=== PATIENT | female | born 1980 | race African-American/Black ===

== ENCOUNTER 2017-08-31 06:16 | Emergency (ER) | payer OTHER ==
[~2017-08-31] VITALS: Ht 167.6 cm; Wt 81.6 kg
--- NOTE | 2017-08-31 06:38 | PHYS DOC ---
Past History Past Medical History: Hypertension Smoking: Cigarettes Adult General Chief Complaint Chief Complaint: MECHANICAL FALL HPI HPI 37-year-old female patient states she slipped on ice at 3:30 AM while she was at work and twisted her right ankle for prevention of fall patient denies head injury or other injuries. Patient complaining of pain in lateral side of right ankle as a constant pain that getting force with walking. Patient rated her pain 9/10 and states she took 2 Excedrin Tylenol and doesn't want to have any more pain medication in ER. Review of Systems Review of Systems Constitutional: Denies fever or chills [] Eyes: Denies change in visual acuity, redness, or eye pain [] HENT: Denies nasal congestion or sore throat [] Respiratory: Denies cough or shortness of breath [] Cardiovascular: No additional information not addressed in HPI [] GI: Denies abdominal pain, nausea, vomiting, bloody stools or diarrhea [] : Denies dysuria or hematuria [] Musculoskeletal: Denies back pain , reports joint pain [] Integument: Denies rash or skin lesions [] Neurologic: Denies headache, focal weakness or sensory changes [] Endocrine: Denies polyuria or polydipsia [] All other systems were reviewed and found to be within normal limits, except as documented in this note. Physical Exam Physical Exam Constitutional: Well developed, well nourished, mild distress, non-toxic appearance. [] HENT: Normocephalic, atraumatic, bilateral external ears normal, oropharynx moist, no oral exudates, nose normal. [] Eyes: PERRLA, EOMI, conjunctiva normal, no discharge. [] Neck: Normal range of motion, no tenderness, supple, no stridor. [] Cardiovascular:Heart rate regular rhythm, no murmur [] Lungs & Thorax: Bilateral breath sounds clear to auscultation [] Extremities: Right ankle without deformity, mild edema and tenderness in lateral malleolus,[ normal range of motion, no neurovascular deficit] Neurologic: Alert and oriented X 3, normal motor function, normal sensory function, no focal deficits noted. [] Psychologic: Affect normal, judgement normal, mood normal. [] EKG EKG [] Radiology/Procedures Radiology/Procedures Right ankle x-ray interpreted by me and did not show acute finding.[] Course & Med Decision Making Course & Med Decision Making Pertinent Imaging studies reviewed. (See chart for details) Evaluation of patient in ER showed 37-year-old female patient with twisting his right ankle at [place]. Patient had mild edema and tenderness in lateral malleolus with unremarkable x-ray of ankle. Air cast splint was applied by [employer] and patient instructed to elevate her foot and apply ice. Patient has history of hypertension and doesn't take medication. His blood pressure was 126/ 91 and patient instructed to follow with her primary care physician. Patient was instructed to quit smoking. [] Dragon Disclaimer Dragon Disclaimer This electronic medical record was generated, in whole or in part, using a voice recognition dictation system. Departure Departure: Impression: Primary Impression: Right ankle sprain Additional Impressions: Tobacco abuse Tobacco abuse counseling Disposition: HOME, SELF-CARE (At [id number]) Condition: STABLE Patient Instructions: Ankle Sprain, Smoking Cessation, Tips For Success Additional Instructions: Apply ice on the affected area Follow-up with your primary care physician in 3-5 days Return to ER if not getting better Scripts Naproxen (NAPROSYN) 500 Mg Tablet 1 TAB PO BID, #20 TAB 2 Refills Prov: CARLOS YOUSSEF MD 08/31/17 Problem Qualifiers CARLOS YUOSSEF MD Aug 31, 2017 06:38
[2017-08-31] MEDS ORDERED: NAPR-683 PO (06:59)
[2017-08-31 07:00] VITALS: BP 146/100
--- NOTE | 2017-08-31 07:09 | RAD ---
Right ankle, 3 views, 08/31/2017: History: Fall, pain There is mild spurring at the ankle joint. No acute fracture or dislocation is identified. There is mild diffuse soft tissue swelling. IMPRESSION: No acute bony abnormality is detected.
== END 2017-08-31 07:10 | disposition home or self-care (01) ==
LOC: ER 06:16
DX: S93.401A Sprain of unspecified ligament of right ankle, initial encounter (principal); I10 Essential (primary) hypertension; F17.210 Nicotine dependence, cigarettes, uncomplicated; Z71.6 Tobacco abuse counseling; X50.1XXA Overexertion from prolonged static or awkward postures, initial encounter; Y93.89 Activity, other specified; Y99.8 Other external cause status; Y92.89 Other specified places as the place of occurrence of the external cause
CPT/HCPCS: 29515; 73610; 99284